=== PATIENT | female | born 1950 | race Caucasian/White ===

== ENCOUNTER 2020-12-23 08:31 | Emergency (ER) | payer OTHER, SELFPAY ==
--- NOTE | ~2020-12-23 | XR_ITS ---
EXAMINATION: XR lumbar spine 2-3V DATE: 12/23/2020 09:18 INDICATION: Low back pain TECHNIQUE: Anteroposterior and lateral views of the lumbar spine, and cone-down lateral view of the l umbosacral junction were obtained. COMPARISON: None. FINDINGS: Bone alignment is normal. There is no fracture. The vertebral body heights are maintained. There is severe loss of intervertebral disc space height at L5-S1 and moderate loss of disc space hei ght at L4-5. Small degenerative osteophytes project from the anterior endplates of multiple vertebral bodies. There is severe facet osteoarthritis of the lower lumbar spine. Calcified atherosclerosis is noted. IMPRESSION: 1. Moderate lumbar spondylosis without acute findings. Reviewed, dictated and finalized at location A.
--- NOTE | ~2020-12-23 | US_ITS ---
EXAMINATION: US venous doppler [facility] EXAM DATE: 12/23/2020 09:35 INDICATION: Left lower extremity pain. TECHNIQUE: Multiple grayscale, color flow and Doppler images of the left lower extremity deep venous system were obtained and reviewed. There is no prior study for comparison. FINDINGS: The left common femoral, femoral and profunda veins demonstrate normal color flow, respirat ory variation, augmentation and compressibility. Compressibility, color flow confirmed within the le ft popliteal, posterior tibial, peroneal, and greater saphenous veins. IMPRESSION: 1. No left lower extremity deep venous thrombosis. Reviewed, dictated and finalized at location [facility].
[2020-12-23 08:36] VITALS: BP 207/93; PULSE 73; RESP 19; TEMP 37; O2SAT 99
[2020-12-23] MEDS: KETOROLAC 30 MG/ML VIAL (*BKC) IM (09:39)
--- NOTE | 2020-12-23 10:25 | ED.GENADULT ---
HPI - General Adult General Chief complaint: Extremity Problem,Nontraumatic Stated complaint: left leg pain Time Seen by Provider: 12/23/20 08:39 History of Present Illness HPI narrative: Patient is a 70-year-old female who presents ER with left lower extremity pain. Ongoing over the last 2 days. Has been taking Tylenol without relief. Feels it radiate from her foot up to her low back on left side. No known injury or trauma but does report that she was carrying a laundry basket days ago. No weakness or numbness. No inability to urinate/defecate. Denies chest pain or shortness of breath. She has no new edema in her legs which she is concerned she has a blood clot. No previous history of blood clots. Occasionally feels burning in the leg. Related Data Home Medications Medication Instructions Recorded Confirmed aspirin 81 mg tablet,delayed 81 mg PO DAILY 04/29/20 08/15/20 release furosemide 20 mg tablet 20 mg PO QAM 04/29/20 08/15/20 metformin 1,000 mg tablet 1,000 mg PO BID 04/29/20 08/15/20 rosuvastatin 20 mg tablet 20 mg PO DAILY 04/29/20 08/15/20 Allergies Allergy/AdvReac Type Severity Reaction Status Date / Time amoxicillin Allergy Intermediate Swelling Verified 12/23/20 08:44 cephalexin [From Keflex] Allergy Intermediate Swelling Verified 12/23/20 08:44 hydrochlorothiazide Allergy Intermediate gout Verified 12/23/20 08:44 latex Allergy Intermediate Hives Verified 12/23/20 08:44 lisinopril Allergy Intermediate Cough Verified 12/23/20 08:44 Opioids - Morphine Analogues Allergy Intermediate Brachycardi Verified 12/23/20 08:44 a Tetanus Vaccines and Toxoid Allergy Intermediate Swelling Verified 12/23/20 08:44 losartan AdvReac Intermediate Fainting Verified 12/23/20 09:12 pioglitazone [From Actos] AdvReac Intermediate edema Verified 12/23/20 08:44 Review of Systems Review of Systems: All systems reviewed & are unremarkable except as noted in HPI and below Constitutional: Constitutional: Denies chills, Denies fever(s) and Denies weakness Cardiovascular: Cardiovascular: Denies chest pain and Denies radiating jaw, neck or arm pain Respiratory: Respiratory: Denies cough, Denies dyspnea and Denies wheezing Musculoskeletal: Musculoskeletal: Reports back pain, Denies arthralgias, Denies joint swelling and Denies muscle cramps Neurologic: Denies focal weakness and Denies numbness PMFSH Past Medical History Medical History Allergies Anxiety Arthritis CAD (coronary artery disease) Crohn disease Diabetes Fibromyalgia Heart disease Hypertension IBS (irritable bowel syndrome) Lupus Morbid obesity Panic disorder Seasonal allergic rhinitis Seizure Sjogrens syndrome Stroke Type 2 diabetes mellitus Family History Family History Father Diabetes mellitus Hypertension Depression Anxiety Heart disease Mother Hypertension Heart disease Sibling Diabetes mellitus Hypertension Depression Anxiety Heart disease Other Cerebrovascular accident Thyroid disease Type 2 diabetes mellitus Social History Social History Alcohol intake: never Substance use: never Gender identity (if verbalized by the patient): Female Sexual Orientation (if Verbalized by the Patient): Straight or Heterosexual Exam Narrative: GENERAL: Well-appearing, well-nourished, and in no acute distress. HEAD: Normocephalic, atraumatic. CHEST: Clear to auscultation. No respiratory distress. HEART: Regular rate and rhythm. Normal peripheral pulses. ABDOMEN: Soft, nontender, nondistended. Back: No midline tenderness of thoracic or lumbar spine. Mild tenderness in the left SI region. No bruising or abrasions noted. EXTREMITIES: Normal range of motion. No edema. Negative straight leg raise. SKIN: Warm, dry, no rash. NEURO: Sensation intact in lower extremitie
[2020-12-23 10:45] VITALS: BP 167/83; PULSE 76; RESP 18; O2SAT 95
== END 2020-12-23 10:47 | disposition home or self-care (01) ==
PROVIDERS: Emergency Provider Emergency Medicine; PCP Internal Medicine
DX: M54.32 Sciatica, left side (principal); I25.10 Atherosclerotic heart disease of native coronary artery without angina pectoris; K50.90 Crohn's disease, unspecified, without complications; E11.9 Type 2 diabetes mellitus without complications; I11.9 Hypertensive heart disease without heart failure; M35.00 Sjogren syndrome, unspecified; M79.7 Fibromyalgia; M19.90 Unspecified osteoarthritis, unspecified site; E66.01 Morbid (severe) obesity due to excess calories; Z68.41 Body mass index [BMI] 40.0-44.9, adult; F41.9 Anxiety disorder, unspecified; Z86.73 Personal history of transient ischemic attack (TIA), and cerebral infarction without residual deficits; Z79.82 Long term (current) use of aspirin; Z79.84 Long term (current) use of oral hypoglycemic drugs; M47.816 Spondylosis without myelopathy or radiculopathy, lumbar region
CPT/HCPCS: 72100; 93971; 96372; 99284; J1885

== ENCOUNTER 2021-05-15 14:42 | Emergency (ER) | payer OTHER, SELFPAY ==
[2021-05-15 14:42] VITALS: BP 204/52; PULSE 72; RESP 16; TEMP 36.2; O2SAT 96
[2021-05-15 14:49] VITALS: PULSE 72; RESP 12; O2SAT 98
--- NOTE | 2021-05-15 14:49 | ECG_ITS ---
Measurements Intervals Hood Rate: 71 P: 62 TX: 182 QRS: -19 QRSD: 99 T: 13 QT: 381 QTc: 414 Interpretive Statements SINUS RHYTHM MINIMAL VOLTAGE CRITERIA FOR LVH, CONSIDER NORMAL VARIANT [MEETS CRITERIA IN ONE OF: R(aVL), S(V1), R(V5), R(V5/V6)+S(V1)] NO PREVIOUS ECG AVAILABLE FOR COMPARISON Electronically Signed On 05-15-2021 18:47:20 CDT by Michelle Mtz M.D.
[2021-05-15 15:00] VITALS: PULSE 72; RESP 17; O2SAT 96
[2021-05-15 15:02] VITALS: BP 160/73; PULSE 73; RESP 11; O2SAT 98
--- NOTE | 2021-05-15 15:15 | ED.GENADULT ---
HPI - General Adult General Chief complaint: Seizure Stated complaint: SZ Time Seen by Provider: 05/15/21 14:45 Source: patient Mode of arrival: ambulatory Limitations: no limitations History of Present Illness HPI narrative: 70 years old white female presented to the ED with 2 episodes of pseudoseizure while being examined at Dr. WAYNE bae. Patient drove herself to the emergency room, currently is asymptomatic. Patient is telling me that she does not need any blood work-up or further evaluation because she had this kind of seizure when she is stressed. Patient missed direction to Dr. Hou office this morning, and was extremely mad and angry distressed about it. Patient does not know how to use GPS. Patient denies any focal deficit, fever, chills, nausea, vomiting, chest pain, shortness of breath, back pain, headache. History of diabetes, Sjogren's syndrome, IBS, fibromyalgia, anxiety, depression, systemic lupus Related Data Home Medications Medication Instructions Recorded Confirmed aspirin 81 mg tablet,delayed 81 mg PO DAILY 04/29/20 08/15/20 release Allergies Allergy/AdvReac Type Severity Reaction Status Date / Time amoxicillin Allergy Intermediate Swelling Verified 05/15/21 14:46 cephalexin [From Keflex] Allergy Intermediate Swelling Verified 05/15/21 14:46 hydrochlorothiazide Allergy Intermediate gout Verified 05/15/21 14:46 latex Allergy Intermediate Hives Verified 05/15/21 14:46 lisinopril Allergy Intermediate Cough Verified 05/15/21 14:46 Opioids - Morphine Analogues Allergy Intermediate Brachycardi Verified 05/15/21 14:46 a Tetanus Vaccines and Toxoid Allergy Intermediate Swelling Verified 05/15/21 14:46 losartan AdvReac Intermediate Fainting Verified 05/15/21 14:46 pioglitazone [From Actos] AdvReac Intermediate edema Verified 05/15/21 14:46 Review of Systems Review of Systems: CONSTITUTIONAL: Denies fever, chills, or sweats. EYES: Denies visual changes, redness, or discharge. ENT: Denies rhinorrhea, congestion, sore throat, or otalgia. CARDIOVASCULAR: Denies chest pain, palpitations, or edema. RESPIRATORY: Denies cough or dyspnea. GASTROINTESTINAL: Denies abdominal pain, nausea, vomiting, or diarrhea. GENITOURINARY: Denies dysuria or hematuria. SKIN: Denies rash or itching. MUSCULOSKELETAL: Denies back pain, joint pain, or myalgia. NEUROLOGIC: Denies headache, numbness, or weakness. PSYCHIATRIC: Denies anxiety or depression. [facility] Past Medical History Medical History Allergies Anxiety Arthritis CAD (coronary artery disease) Crohn disease Diabetes Fibromyalgia Heart disease Hypertension IBS (irritable bowel syndrome) Lupus Morbid obesity Panic disorder Seasonal allergic rhinitis Seizure Sjogrens syndrome Stroke Type 2 diabetes mellitus Family History Family History Father Diabetes mellitus Hypertension Depression Anxiety Heart disease Mother Hypertension Heart disease Sibling Diabetes mellitus Hypertension Depression Anxiety Heart disease Other Cerebrovascular accident Thyroid disease Type 2 diabetes mellitus Social History Social History Alcohol intake: never Substance use: never Gender identity (if verbalized by the patient): Female Sexual Orientation (if Verbalized by the Patient): Straight or Heterosexual Exam Narrative: General appearance: Well-developed, well-nourished Skin: Normal color Head: Normocephalic, nontraumatic Eyes: Clear conjunctiva ENT: Oropharynx normal, ears normal, nose normal Neck: Supple, nontender Chest and respiratory: Airway patent, no respiratory distress, no accessory muscle use Heart: Regular rate/rhythm Abdomen: Soft, nontender, no organomegaly, quiet bowel sounds Vascular: Normal peripheral pulses, normal capillary refill. Musculoskeletal: Normal range of nataliya
== END 2021-05-15 15:55 | disposition home or self-care (01) ==
LOC: ANHED 15:47
PROVIDERS: Emergency Provider Emergency Medicine; PCP Internal Medicine
DX: R56.9 Unspecified convulsions (principal); I25.10 Atherosclerotic heart disease of native coronary artery without angina pectoris; E11.9 Type 2 diabetes mellitus without complications; I10 Essential (primary) hypertension; K50.90 Crohn's disease, unspecified, without complications; M19.90 Unspecified osteoarthritis, unspecified site; M79.7 Fibromyalgia; M35.00 Sjogren syndrome, unspecified; F41.9 Anxiety disorder, unspecified; Z86.73 Personal history of transient ischemic attack (TIA), and cerebral infarction without residual deficits; E66.01 Morbid (severe) obesity due to excess calories; Z68.41 Body mass index [BMI] 40.0-44.9, adult; Z79.82 Long term (current) use of aspirin; Z79.84 Long term (current) use of oral hypoglycemic drugs; R94.31 Abnormal electrocardiogram [ECG] [EKG]
CPT/HCPCS: 93005; 99284

== ENCOUNTER 2021-06-30 08:41 | Outpatient (CLI) | payer OTHER, SELFPAY ==
--- NOTE | 2021-06-30 08:49 | ECHO_ITS ---
Patient Info Name: Dayanara Rasmussen Age: 70 years : 1950 Gender: Female Ht: 60 in Wt: 214 lbs BSA: 2.08 m2 HR: 71 bpm BP: 160 / 87 mmHg Technical Quality: Fair Exam Date: 06/30/2021 9:16 AM Exam Location: [facility] Patient Status: Outpatient Admit Date: 06/30/2021 Staff Ordering Physician: Lucio Hou DO Wastewater Treatment Operator: Antonio Brower RDCS, RT Attending Provider: Lucio Hou DO Referring Physician: Ameya HAYNES; Exam Type: CA echo doppler color flow Study Info Indications R01.1 - Cardiac murmur, unspecified Complete two-dimensional, color flow and Doppler transthoracic echocardiogram is performed. Strain analysis performed. Summary 1. Complete two-dimensional, color flow and Doppler transthoracic echocardiogram is performed. 2. Left ventricular chamber dimension is normal. 3. Left ventricular systolic function is normal, estimated at 60-65%. 4. There is mildly increased left ventricular wall thickness. 5. The left ventricular diastolic function is grade I diastolic dysfunction. 6. E/e' 14 is mildly elevated. 7. Global longitudinal strain is abnormal at -15.9%. 8. There is moderate aortic valve sclerosis. 9. There is moderate to severe aortic valve stenosis with a peak velocity of 306 cm/s, mean gradient of 21 mmHg, and aortic valve area of 0.9 cm2. 10. The mitral valve has mildly calcified annulus. 11. There is mild mitral valve regurgitation. 12. No pulmonary hypertension, estimated pulmonary arterial systolic pressure is 34 mmHg. Left Ventricle E/e' 14 is mildly elevated. Global longitudinal strain is abnormal at -15.9%. Left ventricular chamber dimension is normal. Left ventricular systolic function is normal, estimated at 60-65%. There is mildly increased left ventricular wall thickness. The left ventricular diastolic function is grade I diastolic dysfunction. Right Ventricle Right ventricular chamber dimension is normal. Right ventricular systolic function is normal. Left Atria Left atrial chamber dimension is normal. Right Atria Right atrial chamber dimension is normal. Aortic Valve There is moderate to severe aortic valve stenosis with a peak velocity of 306 cm/s, mean gradient of 21 mmHg, and aortic valve area of 0.9 cm2. The aortic valve is trileaflet. There is moderate aortic valve sclerosis. There is no aortic valve regurgitation. Pulmonic Valve There is no pulmonic regurgitation. Mitral Valve The mitral valve has mildly calcified annulus. There is no mitral valve stenosis. There is mild mitral valve regurgitation. Tricuspid Valve There is no tricuspid valve regurgitation. No pulmonary hypertension, estimated pulmonary arterial systolic pressure is 34 mmHg. Pericardium/Pleural There is no pericardial effusion. Inferior Vena Cava Normal inferior vena cava with >50% collapse upon inspiration consistent with normal right atrial pressure, 5 mmHg. Aorta The aortic root size at the sinus of Valsalva is normal. Left Ventricular Outflow Tract Name Value Normal LVOT 2D LVOT Diameter 1.9 cm LVOT Doppler LVOT Peak Gradient 4 mmHg
== END 2021-06-30 08:42 | disposition home or self-care (01) ==
PROVIDERS: PCP Family Medicine; Visit Provider Internal Medicine Cardiovascular Disease
DX: R01.1 Cardiac murmur, unspecified (principal)
CPT/HCPCS: 93306

== ENCOUNTER → 2021-07-08 09:14 | Outpatient (CLI) | payer OTHER, SELFPAY ==
--- NOTE | ~2021-07-08 | CT_ITS ---
EXAMINATION: CT brain wo con DATE: 07/08/2021 09:39 INDICATION: Patient states she fell and struck head and lost consciousness and April 2021, with he adaches since then. TECHNIQUE: Computed tomography (CT) of the head was performed without intravenous contrast. The mA wa s adjusted according to patient size. Iterative reconstruction technique was employed. Exam dose: 59 9.57 mGy-cm total exam DLP. COMPARISON: None FINDINGS: Bilateral carotid siphon internal carotid artery calcifications. There is nonspecific dimin ished attenuation of the cerebral white matter, likely due to chronic small vessel ischemic changes. No intracranial mass lesion or hemorrhage or cerebrovascular accident, midline shift or mass effect e ffect is detected. There is moderate cerebral and cerebellar volume loss. No subdural or epidural hematoma is detected. The orbital contents are unremarkable. The mastoid air cells and included paranasal sinuses are normally developed and aerated. No fracture or bone destruction of the cranial vault. IMPRESSION: Cerebral atherosclerosis and chronic small vessel ischemic changes of the cerebral white matter No acute intracranial finding or skull fracture Reviewed, dictated and finalized at [facility]. Reviewed, dictated and finalized at location B.
== END ==
PROVIDERS: PCP Family Medicine; Visit Provider Family Medicine
DX: S06.9X9A Unspecified intracranial injury with loss of consciousness of unspecified duration, initial encounter (principal)
CPT/HCPCS: 70450

== ENCOUNTER 2021-07-27 08:09 | Emergency (ER) | payer OTHER, SELFPAY ==
--- NOTE | ~2021-07-27 | US_ITS ---
US venous doppler LE RT DATE: 07/27/2021 09:18 INDICATION: Right lower extremity pain for 5 days TECHNIQUE: Real-time and color flow imaging and Doppler analysis of the veins of the lower extremity COMPARISON: None FINDINGS: The right greater saphenous vein is patent. There is spontaneous and phasic flow and normal augmentation and color flow signal and normal compression of the deep veins of the right lower extre mity. IMPRESSION: No evidence of deep venous thrombosis of right leg Reviewed, dictated and finalized at [facility]. Reviewed, dictated and finalized at location A.
[2021-07-27 08:14] VITALS: BP 148/75; PULSE 72; RESP 20; TEMP 36.8; O2SAT 100
[2021-07-27 08:15] VITALS: BP 165/115; PULSE 84; RESP 22; TEMP 36.3; O2SAT 98
--- NOTE | 2021-07-27 08:24 | ED.EXTPRO ---
HPI - Extremity Problem General Chief complaint: Extremity Problem,Nontraumatic Stated complaint: left leg pain Time Seen by Provider: 07/27/21 08:17 History of Present Illness HPI Narrative: Patient states that for the past 5 days she has had severe pain in her right leg, she states initially was in her right hip but now it is the worst in her right lower leg, denies any numbness or weakness or tingling, denies any recent trauma or prolonged pressure on the extremity, states she has never had pain like this before, not having any back pain. No history of DVTs. Related Data Home Medications Medication Instructions Recorded Confirmed aspirin 81 mg tablet,delayed 81 mg PO DAILY 04/29/20 06/06/21 release (Adult Aspirin Regimen) omega 6-[id number]-zcc-fish oil 1,000 mg 1 cap PO DAILY 06/06/21 06/06/21 (120 mg-180 mg) capsule (Fish Oil) Allergies Allergy/AdvReac Type Severity Reaction Status Date / Time amoxicillin Allergy Intermediate Swelling Verified 07/01/21 15:55 cephalexin [From Keflex] Allergy Intermediate Swelling Verified 07/01/21 15:55 hydrochlorothiazide Allergy Intermediate gout Verified 07/01/21 15:55 latex Allergy Intermediate Hives Verified 07/01/21 15:55 lisinopril Allergy Intermediate Cough Verified 07/01/21 15:55 Opioids - Morphine Analogues Allergy Intermediate Brachycardi Verified 07/01/21 15:55 a Tetanus Vaccines and Toxoid Allergy Intermediate Swelling Verified 07/01/21 15:55 losartan AdvReac Intermediate Fainting Verified 07/01/21 15:55 pioglitazone [From Actos] AdvReac Intermediate edema Verified 07/01/21 15:55 Review of Systems Review of Systems: CONST: No fever. HEENT: No sore throat C/V: No chest pain RESP: No difficulty breathing GI: No nausea or vomiting : No dysuria. M/S: Right lower extremity pain SKIN: No rash. NEURO: No focal numbness or weakness PSYCH: No depression PMFSH Past Medical History Medical History Allergies Anxiety Arthritis CAD (coronary artery disease) Crohn disease Diabetes Fibromyalgia Heart disease Hypertension IBS (irritable bowel syndrome) Lupus Morbid obesity Panic disorder Seasonal allergic rhinitis Seizure Sjogrens syndrome Stroke Type 2 diabetes mellitus Family History Family History Father Diabetes mellitus Hypertension Depression Anxiety Heart disease Mother Hypertension Heart disease Sibling Diabetes mellitus Hypertension Depression Anxiety Heart disease Other Cerebrovascular accident Thyroid disease Type 2 diabetes mellitus Social History Social History Alcohol intake: never Substance use: never Gender identity (if verbalized by the patient): Female Sexual Orientation (if Verbalized by the Patient): Straight or Heterosexual Exam Narrative: EXAMINATION OF ORGAN SYSTEMS/BODY AREAS: Constitutional: Vital signs per nursing GENERAL: Sitting up uncomfortably in the bed HEAD: Normal with no signs of head trauma. EYES: EOMI, conjunctiva normal ENT: Hearing grossly intact LUNGS: Nonlabored breathing. HEART: [Regular rate and rhythm] ABD: Nondistended EXT: Normal range of motion, no obvious lower extremity swelling, pulses and perfusion intact bilateral lower extremities SKIN: [No rashes or lesions.] NEURO: [Alert and oriented x 3. No focal sensory or strength deficits.] Full strength with ankle and knee and hip flexion/extension PSYCH: Normal affect Course Vital Signs Vital signs: Vital Signs Temperature 98.2 F 07/27/21 08:14 Pulse Rate 72 07/27/21 08:14 Respiratory Rate 20 07/27/21 08:14 Blood Pressure 148/75 H 07/27/21 08:14 Pulse Oximetry 100 07/27/21 08:14 Temperature 97.3 F L 07/27/21 08:15 Pulse Rate 66 07/27/21 08:44 Respiratory Rate 16 07/27/21 08:44 Blood Pressure 145/63 H 07/27/21 08:44 Pulse Oximetry 98
[2021-07-27] MEDS: KETOROLAC 30 MG/ML VIAL (*BKC) IM (08:28)
[2021-07-27 08:44] VITALS: BP 145/63; PULSE 66; RESP 16; O2SAT 98
--- NOTE | 2021-07-27 08:58 | PC.NURSE ---
Pt to US via w/c
--- NOTE | 2021-07-27 09:13 | PC.NURSE ---
Pt returned from Doppler
[2021-07-27] MEDS: diphenhydrAMINE HCl CAP 25 MG CAPSULE PO (09:32)
[2021-07-27] MEDS: HALOPERIDOL LACTATE 5 MG/ML VIAL IM (09:32)
[2021-07-27 09:58] VITALS: BP 142/78; PULSE 78; RESP 18; O2SAT 98
== END 2021-07-27 09:58 | disposition home or self-care (01) ==
PROVIDERS: Emergency Provider Emergency Medicine; PCP Family Medicine
DX: M79.662 Pain in left lower leg (principal); I25.10 Atherosclerotic heart disease of native coronary artery without angina pectoris; E11.9 Type 2 diabetes mellitus without complications; I10 Essential (primary) hypertension
CPT/HCPCS: 93971; 96372; 99284; A9270; J1630; J1885

== ENCOUNTER 2022-08-31 09:41 | Outpatient (CLI) | payer OTHER, SELFPAY ==
[2022-08-31 19:42] LABS: Creatinine Urine 175.2 mg/dL
[2022-08-31 19:49] LABS: MALB Creatinine Ratio 20.2 mg/g (0-30); Microalbumin Urine Random 35.4 mg/L (0-16.7)
[2022-08-31 20:18] LABS: Alanine Aminotransferase 34 U/L (6-35); Albumin Level 4.5 g/dL (3.5-5.1); Alkaline Phosphatase 83 U/L (38-126); Anion Gap 7 mmol/L (8-16); Aspartate Amino Transferase 83 U/L (14-36); Bilirubin,Total 0.8 mg/dL (0.2-1.3); Blood Urea Nitrogen 11 mg/dL (7-17); Calcium 9.6 mg/dL (8.4-10.2); Carbon Dioxide 32 mmol/L (22-30); Chloride 94 mmol/L (98-107); Cholesterol 129 mg/dL (0-200); Estimated Glomerular Filt Rate > 60; Glucose 222 mg/dL (65-110); HDL Direct 35 mg/dL; Potassium 4.1 mmol/L (3.4-5.0); Sodium 133 mmol/L (137-145); Triglycerides 189 mg/dL (<150)
[2022-08-31 20:47] LABS: LDL Cholesterol Direct 52 mg/dL
[2022-08-31 20:59] LABS: Hemoglobin A1C 9.1 % (<5.7)
== END 2022-08-31 09:42 | disposition home or self-care (01) ==
PROVIDERS: PCP Nurse Practitioner Adult Health; Visit Provider Nurse Practitioner Adult Health
DX: E11.9 Type 2 diabetes mellitus without complications (principal); I10 Essential (primary) hypertension
CPT/HCPCS: 36415; 80048; 80061; 80076; 82043; 83036

== ENCOUNTER 2022-12-08 10:08 | Outpatient (CLI) | payer OTHER, SELFPAY ==
[2022-12-08 18:42] LABS: Alanine Aminotransferase 29 U/L (6-35); Albumin Level 4.2 g/dL (3.5-5.1); Alkaline Phosphatase 75 U/L (38-126); Anion Gap 8 mmol/L (8-16); Aspartate Amino Transferase 69 U/L (14-36); Bilirubin,Total 0.7 mg/dL (0.2-1.3); Blood Urea Nitrogen 12 mg/dL (7-17); Calcium 9.4 mg/dL (8.4-10.2); Carbon Dioxide 28 mmol/L (22-30); Chloride 98 mmol/L (98-107); Cholesterol 129 mg/dL (0-200); Estimated Glomerular Filt Rate > 60; Glucose 200 mg/dL (65-110); HDL Direct 39 mg/dL; Sodium 134 mmol/L (137-145); Triglycerides 164 mg/dL (<150)
[2022-12-08 18:48] LABS: LDL Cholesterol Direct 61 mg/dL
[2022-12-08 19:09] LABS: Creatinine Urine 123.3 mg/dL
[2022-12-08 19:13] LABS: MALB Creatinine Ratio 9.7 mg/g (0-30)
[2022-12-08 19:23] LABS: Hemoglobin A1C 7.7 % (<5.7)
== END 2022-12-08 10:09 | disposition home or self-care (01) ==
PROVIDERS: PCP Family Medicine; Visit Provider Nurse Practitioner Adult Health
DX: E11.9 Type 2 diabetes mellitus without complications (principal); E78.5 Hyperlipidemia, unspecified
CPT/HCPCS: 36415; 80048; 80061; 80076; 82043; 83036

== ENCOUNTER 2023-06-10 10:28 | Outpatient (CLI) | payer OTHER, SELFPAY ==
[2023-06-10 19:20] LABS: Alanine Aminotransferase 29 U/L (6-35); Albumin Level 4.2 g/dL (3.5-5.1); Alkaline Phosphatase 84 U/L (38-126); Anion Gap 7 mmol/L (4-12); Aspartate Amino Transferase 73 U/L (14-36); Bilirubin,Total 0.6 mg/dL (0.2-1.3); Blood Urea Nitrogen 8 mg/dL (7-17); Calcium 9.3 mg/dL (8.4-10.2); Carbon Dioxide 30 mmol/L (22-30); Chloride 99 mmol/L (98-107); Cholesterol 125 mg/dL (0-200); Estimated Glomerular Filt Rate > 60; Glucose 191 mg/dL (65-110); HDL Direct 35 mg/dL; Potassium 4.1 mmol/L (3.4-5.0); Sodium 136 mmol/L (137-145); Triglycerides 182 mg/dL (<150)
[2023-06-10 19:37] LABS: LDL Cholesterol Direct 63 mg/dL
[2023-06-10 21:19] LABS: Creatinine Urine 31.7 mg/dL
[2023-06-10 21:21] LABS: MALB Creatinine Ratio 20.2 mg/g (0-30); Microalbumin Urine Random 6.4 mg/L (0-16.7)
== END 2023-06-10 10:29 | disposition home or self-care (01) ==
LOC: ANHBWCLAB 10:30
PROVIDERS: PCP Nurse Practitioner Adult Health; Visit Provider Nurse Practitioner Adult Health
DX: E11.9 Type 2 diabetes mellitus without complications (principal)
CPT/HCPCS: 36415; 80053; 80061; 82043; 83036

== ENCOUNTER 2023-09-15 16:27 | Outpatient (CLI) | payer OTHER, SELFPAY ==
--- NOTE | ~2023-09-15 | XR_ITS ---
Right wrist Technique: PA and lateral views were obtained. Clinical History: Pain Findings: No acute fracture or dislocation is seen. Osseous alignment is anatomic. There are minimal degenerative changes at triscaphe joint and first CMC joint. Soft tissues are unremarkable. Impression: Minimal degenerative changes, as above. Reviewed, dictated and finalized at [facility]. Impression: Minimal degenerative changes, as above.
== END 2023-09-15 16:28 | disposition home or self-care (01) ==
PROVIDERS: PCP Nurse Practitioner Adult Health; Visit Provider Nurse Practitioner Adult Health
DX: M19.031 Primary osteoarthritis, right wrist (principal)
CPT/HCPCS: 73100

== ENCOUNTER 2023-10-11 10:19 | Outpatient (CLI) | payer OTHER, SELFPAY ==
[2023-10-11 20:27] LABS: Alanine Aminotransferase 30 U/L (6-35); Alkaline Phosphatase 82 U/L (38-126); Anion Gap 11 mmol/L (4-12); Aspartate Amino Transferase 63 U/L (14-36); Bilirubin,Total 0.6 mg/dL (0.2-1.3); Blood Urea Nitrogen 9 mg/dL (7-17); Calcium 9.2 mg/dL (8.4-10.2); Carbon Dioxide 27 mmol/L (22-30); Chloride 96 mmol/L (98-107); Cholesterol 126 mg/dL (0-200); Estimated Glomerular Filt Rate > 60; Glucose 219 mg/dL (65-110); HDL Direct 39 mg/dL; Potassium 3.8 mmol/L (3.4-5.0); Sodium 134 mmol/L (137-145); Triglycerides 176 mg/dL (<150)
[2023-10-11 20:37] LABS: LDL Cholesterol Direct 56 mg/dL
[2023-10-11 20:53] LABS: Creatinine Urine 63.4 mg/dL
[2023-10-11 20:54] LABS: Hemoglobin A1C 8.3 % (<5.7)
[2023-10-11 20:57] LABS: MALB Creatinine Ratio 14.2 mg/g (0-30)
== END 2023-10-11 10:20 | disposition home or self-care (01) ==
PROVIDERS: PCP Nurse Practitioner Adult Health; Visit Provider Nurse Practitioner Adult Health
DX: E11.9 Type 2 diabetes mellitus without complications (principal)
CPT/HCPCS: 36415; 80053; 80061; 82043; 82565; 83036

== ENCOUNTER 2023-12-14 09:09 | Outpatient (CLI) | payer OTHER, SELFPAY ==
[2023-12-14 19:17] LABS: Add Urine Microscopic? NO; Appearance Urine Clear (Clear); Bilirubin Urine Negative (Negative); Blood Urine Negative (Negative); Color Urine Yellow (Yellow); Glucose Urine UA Negative (Negative); Ketones Urine Negative (Negative); Leukocyte Esterase Ur Negative LEU/UL (Negative); Nitrate Urine Negative (Negative); Protein Urine Negative (Negative); Specific Grav Ur 1.009 (1.001-1.035); Urobilinogen Urine 0.2 mg/dL (<2.0); pH Urine 6.5 (5.0-9.0)
== END 2023-12-14 09:10 | disposition home or self-care (01) ==
LOC: ANHBWCLAB 09:10
PROVIDERS: PCP Nurse Practitioner Adult Health; Visit Provider Nurse Practitioner Adult Health
DX: R32 Unspecified urinary incontinence (principal)
CPT/HCPCS: 81003; 87086

== ENCOUNTER 2024-02-15 10:11 | Outpatient (CLI) | payer OTHER, SELFPAY ==
[2024-02-15 19:47] LABS: Basophils Absolute Auto 0.1 K/mm3 (0.0-0.1); Basophils Percent Auto 0.7 % (0.2-1.2); Eosinophils Absolute Auto 0.2 K/mm3 (0-0.3); Eosinophils Percent Auto 3.3 % (0-4.4); Hematocrit 45.8 % (37.0-47.0); Hemoglobin 14.6 g/dL (12.0-15.0); Immature Granulocyte Absolute 0.01 K/mm3 (0.00-0.031); Immature Granulocyte Percent A 0.1 % (0-0.5); Lymphocytes Absolute Auto 2.29 K/mm3 (0.9-3.2); Lymphocytes Percent Auto 32.4 % (18.3-44.2); Mean Corpuscular HGB Conc 31.9 g/dl (32-36); Mean Corpuscular Hemoglobin 30.5 pg (26-34); Mean Corpuscular Volume 95.6 fl (80-100); Mean Platelet Volume 11.3 fl (7.4-10.4); Monocytes Absolute Auto 0.6 K/mm3 (0.1-0.6); Monocytes Percent Auto 8.2 % (2.6-8.5); Neutrophils Absolute Auto 3.9 K/mm3 (1.3-6.7); Neutrophils Percent Auto 55.3 % (45.5-73.1); Platelet Count Result 190 k/mm3 (150-375); Red Blood Count 4.79 M/mm3 (4.2-5.4); Red Cell Distribution Width 13.2 % (11.5-14.5); White Blood Count 7.1 K/mm3 (4.5-10.0)
[2024-02-15 19:59] LABS: Alanine Aminotransferase 31 U/L (6-35); Albumin Level 4.4 g/dL (3.5-5.1); Alkaline Phosphatase 91 U/L (38-126); Anion Gap 5 mmol/L (4-12); Aspartate Amino Transferase 104 U/L (14-36); Bilirubin,Total 0.7 mg/dL (0.2-1.3); Blood Urea Nitrogen 10 mg/dL (7-17); Calcium 9.5 mg/dL (8.4-10.2); Carbon Dioxide 31 mmol/L (22-30); Chloride 99 mmol/L (98-107); Cholesterol 135 mg/dL (0-200); Estimated Glomerular Filt Rate > 60; Glucose 195 mg/dL (65-110); HDL Direct 38 mg/dL; Magnesium 2.1 mg/dL (1.6-2.3); Potassium 4.3 mmol/L (3.4-5.0); Sodium 135 mmol/L (137-145); Triglycerides 186 mg/dL (<150)
[2024-02-15 20:10] LABS: LDL Cholesterol Direct 51 mg/dL
[2024-02-15 20:27] LABS: Microalbumin Urine Random 8.3 mg/L (0-16.7)
[2024-02-15 20:54] LABS: Creatinine Urine 48.8 mg/dL
[2024-02-15 21:03] LABS: Hemoglobin A1C 7.7 % (<5.7)
== END 2024-02-15 10:12 | disposition home or self-care (01) ==
LOC: ANHBWCLAB 10:12
PROVIDERS: PCP Nurse Practitioner Adult Health; Visit Provider Nurse Practitioner Adult Health
DX: I10 Essential (primary) hypertension (principal); E11.9 Type 2 diabetes mellitus without complications
CPT/HCPCS: 36415; 80053; 80061; 82043; 82565; 83036; 83735; 85025

== ENCOUNTER 2024-06-19 09:37 | Outpatient (CLI) | payer OTHER, SELFPAY ==
--- OUTSIDE RECORDS SUMMARY | 2024-06-19 10:40 | XMS_ITS | Continuity of Care Document ---
Author Organization [facility] [place] [address] [facility] [address] [place] [address] Phone Care Team Providers Care Pipeline Controller Name Role Phone Fortino VASQUEZ, Alissa Unavailable Unavailable Allergies, Adverse Reactions, Alerts Substance Reaction Status Criticality amoxicillin Active No Information latex Active No Information tetanus and diphtheria toxoids Active No Information hydrochlorothiazide Active No Infor mation lisinopril Active No Information losartan Active No Information CEPHALEXIN MONOHYDRATE Active No In formation morphine Active No Information Medications Medication Instructions Dosage Effective Dates (start - stop) Status Comments Ying Grant U-100 Insulin 100 unit/mL (3 mL) subcutaneous pen inject by subcutaneous route as per insulin protocol 0.00 - Active metformin 1,000 mg tablet take 1 tablet by oral route 2 times every day with morning and evening meals 1000 MG - Active glipizide 10 mg tablet take 1 tablet by oral route every day before a meal 10 MG - Active atenolol 50 mg tablet take 1 tablet by o ral route every day 50 MG - Active furosemide 20 mg tablet take 1 tablet by oral route every day 20 MG - Active gabapentin 600 mg tablet take 1 tablet by oral route 3 times every day 600 MG - Active rosuvastatin 20 mg tablet take 1 tablet by oral route every day 20 MG - Active dicyclomine 10 mg capsule take 1 capsule by oral route 3 times every day 10 MG - Active alprazolam 0.5 mg tablet take 1 tablet by oral route 3 times every day 0.5 MG - Active aspirin 81 mg tablet,delayed release take 1 tablet by oral route every day 81 MG - Active multivitamin tablet take 1 tablet by ora l route every day 1 tablet - Active Procedures Procedure Date SCODI, Retina Fundus Photography W/ Report Eye Exam & Treatment No Charge [facility]om[facility] Fundus Photos 024 No Charge Refraction SCODI, Retina No Charge [facility] Fundus Photos 023 Office/outpatient Visit, Est No Charge [facility] Fundus Photos 023 SCODI, Retina No Charge Refraction Eye Exam & Treatment SCODI, Retina No Charge [facility] Fundus Photos 022 Refraction Eye Exam & Treatment No Charge Optom[facility] Fundus Photos 021 No Charge Refraction SCODI, Retina Eye Exam, New Patient Advance Directives Directive Yes / No Effective Date File Name Other Directive No N/A N/A WARNING:The information contained in this section is historical and is provided for information only and does not constitute a legal document or any assurance that the information is still accurate. Please verify the information with the martinez of the legal document before using it for clinical purposes. Encounters Encounter Description Practice Location Reason(s) For Visit Diagnoses Date Provider Providers Copied on Encounter [facility], [address] [place] [address] [facility] [address], [place], [place], [address], tel:[phone] DARLEEN PERALTA Professional Follow up visit (chief complaint) Type 2 diab with moderate nonp rtnop with macular edema, biVitreous degeneration, bilateralStabl e branch retinal vein occlusion of right eyeDry eye syndrome of left lacrimal glandPresence of intraocular lensOther secondary cataract, bilateral 4 Fortino OD Alissa. [address] [place] [address] [employer], [address], [place], [place], [address], [place]. tel:[phone] Antonio Mohamud DO.Referri Provider: Luis Beck, [address], [place], [address] . tel:[phone] Office/outpa tient Visit, [facility], [facility] [address], [place], [place], [address], tel:[phone] SEC Jhonny PERALTA Professional 3 Mo NPDR FU (chief complaint) Type 1 diab with moderate nonp rtnop with macular edema, biVitreous degeneration, bilateralStabl e branch retinal vein occlusion of right eyeMeibomian gland dysfnct left eye, upper and lower eyelidsMeibomi an gland dysfnct right eye, upper and lower eyelids Oct-2 3 Fortino OD Alissa. [facility] [employer], [address], [place], [place], [address], [place]. tel:[phone] Antonio Mohamud DO.Referri ng Provider: Luis Beck, [facility] [employer] [address], [place], [address] . tel:[phone] [facility], [facility] [address], [place], [place], [address], [place] tel:[phone] SEC Jhonny PERALTA Professional Diabetic eye exam (chief complaint) Presence of intraocular lensHistory of occlusion of branch retinal arteryStable branch retinal vein occlusion of right eyeVitreous degeneration, bilateralType 2 diab with mod nonp rtnop without macular edema, l eyeType 2 diab with mod nonp rtnop with macular edema, r eyeMeibomian gland dysfnct left eye, upper and lower eyelidsMeibomi an gland dysfnct right eye, upper and lower eyelids Aug- 3 Fortino OD Alissa. [facility] [employer], [address], [place], [place], [address], [place]. tel:[phone] Specialist : Antonio Mohamud DO, [address] [place] [address], [place], [address]. tel:[phone] erring Provider: Luis Beck, [address], [place], [address] . tel:[phone] [facility], [address], [place], [place], [address], [phone] SEC Underwood FABIAN Professional Diabetic eye exam (chief complaint) Type 2 diabetes mellitus without complicationsP resence of intraocular lensPinguecula , right eyeDot and blot hemorrhage, right 0 2 Bryan Luu. [address] [facility], [address], [place], [place], [address], [place]. tel:[phone] Referring Provider: Luis Beck, [facility] [address], [place], [address] . tel:[phone] [facility], [address], [place], [place], [address], [phone] SEC Jhonny FABIAN Professional Diabetic eye exam (chief complaint) Presence of intraocular lensPinguecula , right eyeDry eye syndrome of left lacrimal glandAmblyopia of right eyeType 2 diabetes mellitus without complicationsB ranch retinal vein occlusion of right eye with retinal neovasculariza tion 1 Bryan Luu. [address] [facility], [address], [place], [place], [address], [place]. tel:[phone] Referring Provider: Luis Beck, [facility] [address], [place], [address] . tel:[phone] [facility], [address], [place], [place], [address], [place] [phone] SEC Jhonny PERALTA Professional No Information 1 Kranthi Smith. [address], [address], [place], [place], [address], [place]. tel:[phone] Family History Family Member Type Diagnosis Age At Onset Problem Family history of Diabetes garrett souza Payers Payer name Insurance type Covered constitution party ID Authoriza tion(s) [employer] [id number] Social History Type Description Quantity Date Captured Comments Alcohol Use Details No Caffeine Use Details Tobacco Use Status Current non-smoker Smoking Status Never smoker Non-Smoking Tobacco Use Details : No Details Available : No Details Available Sex Female Chief Complaint And Reason For Visit From encounter dated '09/08/2023 14:30'. Follow up visit (chief complaint). Description: The 73 year old patient presents for evaluation of 6-8 month NPDR/CME Follow up visit in the right eye and left eye. Pt is DMII and followed by PCP, last A1C was around 8. Pts last BS reading was done this AM but she is unsure what it was. Pt states it fluctuates between 96-195 depending on the day. Pt is Insulin dependent. Pt states she has not noti jason any difference in vision since last visit. Reason For Referral Reason For Referral No Information Plan Of Treatment Date Type Action Status Patient Education Learning About YAG Lase r Capsulotomy completed Patient Education Diabetic Retinopathy: C are Instructions completed Patient Education Learning About Vitreous Detachment completed Patient Education Type 2 Diabetes: Care I nstructions completed Patient Education Learning About Retinal Vein Occlusion completed History Of Present Illness Encounter Date Complaint History Of Prese nt Illness Follow up visit The 73 year old patient presents for evaluation of 6-8 month NPDR/CME Follow up visit in the right eye and left eye. Pt is DMII and followed by PCP, last A1C was around 8. Pts last BS reading was done this AM but she is unsure what it was. Pt states it fluctuates between 96-195 depending on the day. Pt is Insulin dependent. Pt states she has not noticed any difference in vision since last visit. 3 Mo NPDR FU The 72 year old patient presents for evaluation of 3 Mo NPDR FU in the right eye and left eye. Recent A1C 7.7, BS runs 125-175. Still on insulin. Pt states no pain or discomfort in OU, pt also states no changes in vision since last visit. Diabetic eye exam The 72 year ol d patient presents for evaluation of Diabetic eye exam in the right eye and left eye. Patient states she sees a spot in her left eye vision. Patient states VA has decreased at a distance. Patient also has a couple of bumps on her lids that she wants the doctor to look at. Patient is a diab, BS checked this am @ 202, a1c 9.0, and PCP treats her diab. Diabetic eye exam The 71 year ol d patient presents for evaluation of Diabetic eye exam in the right eye and left eye. Hx of Amblyopia OD, BRVO OD, DBS'S OD, and PCIOL OU. Patient states she was put on Insulin 4 months ago which seem to help her VA. Patient checked BS this am @ 145, a1c 10, and PCP treats her BS. Diabetic eye exam The 69 year ol d female presents for evaluation of Diabetic eye exam in the right eye and left eye. Hx of Cataract sx OU. Patient states she is having blurred VA in both eyes. Patient avoids driving at night and won't drive when it rains. Patient states her BS has been running extremely high over the last couple of months. Patient states she is very stressed. Patient is a Type 2 diab she doesn't know how long, BS last checked couple weeks ago @ 250, a1c 12.0, and PCP treats her diab as of now but she is going to be seeing an endo next week. Functional Status Date Functional Assessmen t No Information Instructions Date Instruction Additional Infor patrica Impression/Plan Impression/Plan Impression/Plan Impression/Plan Impression/Plan Assessments Type Assessment Date assessment Type 2 diab with moderate nonp r tnop with macular edema, bi assessment Vitreous degeneration, bilateral assessment Stable branch retinal vein occlu leatha of right eye assessment Dry eye syndrome of left lacrima l gland assessment Presence of intraocular lens Aug assessment Other secondary cataract, bilate ral Patient Care Teams Name Effective Dates (start - stop) Status Members No Information
--- OUTSIDE RECORDS SUMMARY | 2024-06-19 10:40 | XMS_ITS | Clinical Summary ---
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 [facility] Comment: Interpretive Data No reference range established. Current interpretive data was last revised 2018. Creatinine Ur 11.6 mg/dL [facility] Comment: Interpretive Data No reference range established. Current interpretive data was last revised 2018. Albumin Creatinine Ratio, Ur <103(H) 1 - 29 mg/g [facility] [place]] Urine 11/10/2021 10:5 4 AM CDT 11/10/2021 2:12 PM CDT us Brody Tran MD LAB URINE ORDERABLES Muriel montano Result [facility] [address] Department [place] [address] * (ABNORMAL) Lipid panel (11/10/2021 10:54 AM CDT) Cholesterol 126 30 - 199 mg/dL [facility] Comment: Interpretive Data Ages < or = 19 years Acceptable: <170 mg/dL Borderline high: 170-199 mg/dL High: >or= 200 mg/dL Ages > or = 20 years Desirable: <200 mg/dL Borderline high: 200-239 mg/dL High: >or= 240 mg/dL Literature References: 1. Expert Panel on Integrated Guidelines for Cardiovascular Health and Risk Reduction in Children and Adolescents. Pediatrics 2011;128:S213 2. NCEP Expert Panel. Circulation 2004;110:227 Current Interpretive Data was last revised on 2017. Triglycerides 199(H) <=149 mg/dL [facility] Comment: Interpretive Data Ages < or = 9 years Acceptable: <75 mg/dL Borderline high: 75-99 mg/dL High: >or= 100 mg/dL Ages 10 to 20 years Acceptable: <90 mg/dL Borderline high: 90-129 mg/dL High: >or= 130 mg/dL Ages > or = 20 years Desirable: <150 mg/dL Borderline high: 150-199 mg/dL High: 200-499 mg/dL Very high: >or= 499 mg/dL Literature References: 1. Expert Panel on Integrated Guidelines for Cardiovascular Health and Risk Reduction in Children and Adolescents. Pediatrics 2011;128:S213 2. NCEP Expert Panel. Circulation 2004;110:227 Current Interpretive Data was last revised on 2017. HDL 43 >=40 mg/dL [facility] Comment: Interpretive Data Ages < or = 19 years Acceptable: >45 mg/dL Borderline low: 40-45 mg/dL Low: <40 mg/dL Ages > or = 20 years Desirable: >or= 60 mg/dL Low: <40 mg/dL Literature References: 1. Expert Panel on Integrated Guidelines for Cardiovascular Health and Risk Reduction in Children and Adolescents. Pediatrics 2011;128:S213 2. NCEP Expert Panel. Circulation 2004;110:227 Current Interpretive Data was last revised on 2017. LDL, calculated 43 <=129 mg/dL [facility] Comment: Interpretive Data Ages < or = 19 years Acceptable: <110 mg/dL Borderline high: 110-129 mg/dL High: >or= 130 mg/dL Ages > or = 20 years Optimal: <100 mg/dL Near optimal: 100-129 mg/dL Borderline high: 130-159 mg/dL High: >160 mg/dL Literature References: 1. Expert Panel on Integrated Guidelines for Cardiovascular Health and Risk Reduction in Children and Adolescents. Pediatrics 2011;128:S213 2. NCEP Expert Panel. Circulation 2004;110:227 Current Interpretive Data was last revised on 2017. Non-HDL Cholesterol 83 mg/dL [facility] Comment: Interpretive Data Ages < or = 19 years Acceptable: <120 mg/dL Borderline high: 120-144 mg/dL High: >145 mg/dL Ages > or = 20 years When triglycerides are >200 mg/dL, Non-HDL cholesterol is a secondary target of therapy with treatment goals that are 30 mg/dL greater than the LDL cholesterol target. Literature References: 1. Expert Panel on Integrated Guidelines for Cardiovascular Health and Risk Reduction in Children and Adolescents. Pediatrics 2011;128:S213 2. NCEP Expert Panel. Circulation 2003;110:227 Current Interpretive Data was last revised on 2017. Chol/HDL ratio 3 [facility] Blood 11/10/2021 10:5 4 AM CDT 11/10/2021 2:12 PM CDT us Brody Tran MD LAB BLOOD ORDERABLES Muriel montano Result [facility] [address] Department of Laboratories [place], [place] [id number] * Diabetic Eye Exam (07/31/2021) Historical Provider [facility] Final Result * Stool DNA - Cologuard (03/20/2020 11:04 AM SUPERVISOR COLOR PASTE MIXING) Stool DNA - Cologuard Negative Not Applicable [employer] (CLIA #:[id number]) Comment: A negative result indicates a low likelihood that a colorectal cancer (CRC) or an advanced adenoma (adenomatous polyps with more advanced pre-malignant features) is present. The chance that a person with a negative Cologuard test has a colorectal cancer is less than 1 in 1500 (negative predictive value >99.9%) or has an advanced adenoma is less than 5.3% (negative predictive value 94.7%). These data are based on a prospective cross-sectional screening study of 10,000 individuals at average risk for colorectal cancer who were screened with both Cologuard and colonoscopy. (Jhonatanialjenn T. et al, N Engl J Med 2014;370(14):8283-7961) The normal value (reference range) for this assay is negative. COLOGUARD RE-SCREENING RECOMMENDATION: Periodic routine colorectal cancer screening is an important part of preventive healthcare for asymptomatic persons at average risk for colorectal cancer. Following a negative Cologuard result, the [employer] Society and U.S. Multi-Society Task Force screening guidelines recommend a Cologuard re-screening interval of 3 years. References: [employer] Society (ACS). Colorectal cancer prevention and early detection. [place], [place]: [employer] Society; [updated 2016 Jun 22]. https://www.cancer.org/cancer/davqo-cffgmf-vftdsj/igcvutaqv-orblcsjkn-ofoldrp/ac s-rec ommendations.html. Accessed October 29, 2017; Jeffrey DEL ROSARIO, Chris NIÑO, Timothy MOJ[place], Colorectal Cancer Screening: Recommendations for Physicians and Patients from the U.S. Multi-Society Task Force on Colorectal Cancer Screening, Am J Gastroenterology 2017; 112:6642-3382. TEST TYPE: Composite algorithmic analysis of stool DNA-biomarkers with hemoglobin immunoassay. Quantitative values of individual biomarkers are not reportable and are not associated with individual biomarker result reference ranges. PRECAUTIONS AND LIMITATIONS: Cologuard is intended for colorectal cancer screening of adults of either sex, 45 years or older, who are at average-risk for colorectal cancer (CRC). Cologuard has been approved for use by the U.S. FDA. Cologuard may produce a false negative or false positive result. A negative Cologuard test result does not guarantee the absence of CRC or advanced adenoma (pre-cancer). Patients with a negative Cologuard test result should be advised to continue participating in a colorectal cancer screening program. The screening interval for Cologuard is currently recommended at an interval of every 3 years by the [employer] Society and U.S. Multi-Society Task Force. A false positive result occurs when Cologuard produces a positive result, even though a colonoscopy may not find colorectal cancer or precancerous polyps. The performance of Cologuard has been established in a cross sectional study (i.e., single point in time) of average-risk adults aged 50-84. Cologuard performance in patients ages 45 to 49 years was estimated by sub-group analysis of near-age groups. Cologuard performance data in a 10,000 patient pivotal study using colonoscopy as the reference method can be accessed at the following location: www.[employer]/results. Additional description of the Cologuard test process, warnings and precautions can be found at www.cologuardtest.com. Rx only. Stool 03/20/2020 11:0 4 AM SUPERVISOR COLOR PASTE MIXING 03/21/2020 10:57 AM SUPERVISOR COLOR PASTE MIXING us Brody Tran MD LAB BODY FLUIDS AND STOOL S ORDERABLES Final Result [facility] (CLIA #:[id number]) [address] [place] [address] from Last 3 Months or Most Recently Relevant to Health Maintenance Insurance [employer] Care Teams Biometrics Technician Relationship Specialty Start Date End Date Lino Tomas MD PCP - General Family Practice 05/10/23
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
[2024-06-19 19:44] LABS: Alanine Aminotransferase 30 U/L (6-35); Albumin Level 4.3 g/dL (3.5-5.1); Alkaline Phosphatase 83 U/L (38-126); Anion Gap 8 mmol/L (4-12); Aspartate Amino Transferase 84 U/L (14-36); Bilirubin,Total 0.6 mg/dL (0.2-1.3); Blood Urea Nitrogen 12 mg/dL (7-17); Calcium 9.2 mg/dL (8.4-10.2); Carbon Dioxide 31 mmol/L (22-30); Chloride 98 mmol/L (98-107); Cholesterol 130 mg/dL (0-200); Estimated Glomerular Filt Rate > 60; Glucose 166 mg/dL (65-110); HDL Direct 38 mg/dL; Potassium 4.7 mmol/L (3.4-5.0); Sodium 137 mmol/L (137-145); Triglycerides 180 mg/dL (<150)
[2024-06-19 19:56] LABS: LDL Cholesterol Direct 48 mg/dL
[2024-06-19 20:50] LABS: Hemoglobin A1C 7.7 % (<5.7)
[2024-06-19 21:39] LABS: Creatinine Urine 49.7 mg/dL
[2024-06-19 21:45] LABS: MALB Creatinine Ratio 18.5 mg/g (0-30); Microalbumin Urine Random 9.2 mg/L (0-16.7)
== END 2024-06-19 09:38 | disposition home or self-care (01) ==
PROVIDERS: PCP Nurse Practitioner Adult Health; Visit Provider Nurse Practitioner Adult Health
DX: E11.9 Type 2 diabetes mellitus without complications (principal)
CPT/HCPCS: 36415; 80053; 80061; 82043; 82565; 83036

== ENCOUNTER 2024-08-21 11:51 | Outpatient (CLI) | payer OTHER, SELFPAY ==
--- NOTE | ~2024-08-21 | XR_ITS ---
EXAM/ PROCEDURE: XR knee LT min 4V - 08/21/2024 11:53 CDT HISTORY: 74 years old Female with M25.569 - Pain in unspecified knee COMPARISON: None available TECHNIQUE: Three view(s) FINDINGS/ IMPRESSION: There are no fractures or dislocations.Joint space narrowing, subchondral sclerosis, subchondral cyst formation and osteophyte formation, compatible with mild osteoarthritis. Atherosclerotic calcificati ons are seen. Reviewed, dictated and finalized at location A.
== END 2024-08-21 11:52 | disposition home or self-care (01) ==
PROVIDERS: PCP Nurse Practitioner Adult Health; Visit Provider Nurse Practitioner Adult Health
DX: M25.862 Other specified joint disorders, left knee (principal)
CPT/HCPCS: 73564

== ENCOUNTER 2024-08-21 14:15 | Outpatient (CLI) | payer OTHER, SELFPAY ==
--- NOTE | ~2024-08-21 | US_ITS ---
EXAMINATION: US venous doppler [facility] DATE: 08/21/2024 15:11 INDICATION: Pain and swelling TECHNIQUE: Grayscale ultrasound images without and with compression and Doppler ultrasound images of the left lower extremity veins were obtained. COMPARISON: 07/27/2021 FINDINGS: The visualized portions of left common femoral vein, profunda (deep) femoral vein, femoral vein, popl iteal vein, peroneal veins, posterior tibial veins, and greater saphenous vein outflow are patent. IMPRESSION: 1. No deep venous thrombosis. Reviewed, dictated and finalized at location A.
== END 2024-08-21 14:16 | disposition home or self-care (01) ==
PROVIDERS: PCP Nurse Practitioner Adult Health; Visit Provider Nurse Practitioner Adult Health
DX: M79.662 Pain in left lower leg (principal)
CPT/HCPCS: 73564; 93971

== ENCOUNTER 2024-12-21 09:58 | Outpatient (CLI) | payer OTHER, SELFPAY ==
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
[2024-12-21 18:52] LABS: Alanine Aminotransferase 24 U/L (6-35); Albumin Level 4.2 g/dL (3.5-5.1); Alkaline Phosphatase 79 U/L (38-126); Anion Gap 8 mmol/L (4-12); Aspartate Amino Transferase 116 U/L (14-36); Bilirubin,Total 0.6 mg/dL (0.2-1.3); Blood Urea Nitrogen 11 mg/dL (7-17); Calcium 9.3 mg/dL (8.4-10.2); Carbon Dioxide 29 mmol/L (22-30); Chloride 98 mmol/L (98-107); Cholesterol 117 mg/dL (0-200); Estimated Glomerular Filt Rate > 60; Glucose 142 mg/dL (65-110); HDL Direct 39 mg/dL; Potassium 4.6 mmol/L (3.4-5.0); Sodium 135 mmol/L (137-145); Total Protein 7.4 g/dL (6.3-8.2); Triglycerides 157 mg/dL (<150)
[2024-12-21 22:21] LABS: MALB Creatinine Ratio 15.7 mg/g (0-30)
[2024-12-21 23:55] LABS: Hemoglobin A1C 6.3 % (<5.7)
== END 2024-12-21 09:59 | disposition home or self-care (01) ==
LOC: ANHBWCLAB 10:00
PROVIDERS: PCP Nurse Practitioner Adult Health; Visit Provider Nurse Practitioner Adult Health
DX: E11.9 Type 2 diabetes mellitus without complications (principal)
CPT/HCPCS: 36415; 80053; 80061; 82043; 82565; 83036

== ENCOUNTER 2025-01-10 11:20 | Outpatient (CLI) | payer OTHER, SELFPAY ==
--- OUTSIDE RECORDS SUMMARY | 2024-12-27 03:27 | XMS_ITS | Continuity of Care Document ---
Author Organization [facility] Address [address] [place] [address] Phone Care Team Providers Care Stuffer Name Role Phone Kranthi HUNTER FACS, Luis Unavailable Unavailab le Allergies, Adverse Reactions, Alerts Substance Reaction Status Criticality amoxicillin Active No Information latex Active No Information tetanus and diphtheria toxoids Active No Information hydrochlorothiazide Active No Infor mation lisinopril Active No Information losartan Active No Information CEPHALEXIN MONOHYDRATE Active No In formation morphine Active No Information Medications Medication Instructions Dosage Effective Dates (start - stop) Status Comments Humalog Mix 75-25 (U-100) Insulin 100 unit/mL subcutaneous suspension inject by subcutaneous route per prescriber's instructions. Insulin dosing requires individualization. 0.00 - Active metformin 1,000 mg tablet [...] - Active Procedures Procedure Date SCODI, Retina No Charge Refraction No Charge Optomap Fundus Photos 025 Eye Exam & Treatment SCODI, Retina Eye Exam & Treatment No Charge Optomap [...] Yes / No Effective Date File Name No Information Encounters Encounter Description Practice Location Reason(s) For Visit Diagnoses Date Provider Providers Copied on Encounter [facility], [address] [place] [address] [address], [place], [place], [address], [place] tel:[phone] SEC Esbon SHELDON No Information Oct-[address], [address], [place], [place], [address], [place]. tel:[phone] [facility], [address] [facility] [address], [place], [place], [address], [place] tel:[phone] SEC Jhonny PERALTA Professional diabetic eye exam (chief complaint) Type 2 diab with moderate nonp rtnop with macular edema, biVitreous degeneration, bilateralStabl e branch retinal vein occlusion of right eyePresence of intraocular lensOther secondary cataract, bilateralDry eye syndrome of bilateral lacrimal glands Oct-2 5 Fortino OD Alissa. [facility] [employer], [address], [place], [place], [address], [place]. tel:[phone] Antonio Mohamud DO.Special ist: Maximiliano Guillen MD, [address], [address], [place], [address] . tel:[phone] erring Provider: Luis Beck, [facility] [employer] [address], [place], [address] . tel:[phone] [facility], [address] [place], [place] [address], [place], [place], [address], [place] tel:[phone] SEC Jhonny PERALTA Professional Follow up visit (chief complaint) Type 2 diab with moderate nonp rtnop with macular edema, biVitreous degeneration, bilateralStabl e branch retinal vein occlusion of right eyeDry eye syndrome of left lacrimal glandPresence of intraocular lensOther secondary cataract, bilateral Daniel- 0 4 Fortino OD Alissa. [facility] [employer], [address], [place], [place], [address], [place]. tel:[phone] Antonio Mohamud DO.Referri ng Provider: Luis Beck, [facility] [employer] [address], [place], [address] . tel:[phone] Office/outpa tient Visit, [facility], [facility] [address], [place], [place], [address], [place] tel:[phone] SEC Jhonny FABIAN Professional 3 Mo NPDR FU (chief complaint) Type 1 diab with moderate nonp rtnop with macular edema, biVitreous degeneration, bilateralStabl e branch retinal vein occlusion of right eyeMeibomian gland dysfnct left eye, upper and lower eyelidsMeibomi an gland dysfnct right eye, upper and lower eyelids Oct-2 7 3 Fortino OD Alissa. [facility] [employer], [address], [place], [place], [address], [place]. tel:[phone] Antonio Mohamud DO.Referri ng Provider: Luis Beck, [facility] [employer] [address], [place], [address] . tel:[phone] [facility], [facility] [address], [place], [place], [address], [place] tel:[phone] SEC [facility] Professional Diabetic eye exam (chief complaint) Presence [...] dysfnct right eye, upper and lower eyelids 3 Fortino OD Alissa. [facility] [place] [employer], [address], [place], [place], [address], [place]. tel:[phone] Specialist : Antonio Mohamud DO, [facility], [place], [address]. tel:[phone] erring Provider: Luis Beck, [facility] [employer] [address], [place], [address] . tel:[phone] [facility], [facility] [address], [place], [place], [address], [place] tel:[phone] SEC [facility] Professional Diabetic eye exam (chief complaint) Type 2 diabetes mellitus without complicationsP resence of intraocular lensPinguecula , right eyeDot and blot hemorrhage, right 2 Bryan Luu. [address] [facility] [address] [facility] [address], [address], [place], [place], [address], [place]. tel:[phone] Referring Provider: Luis Beck, [facility] [place] [employer] [address], [place], [address] . tel:[phone] [facility], [facility] [address], [place], [place], [address], [place] tel:[phone] SEC [place] FABIAN Professional Diabetic eye exam (chief complaint) Presence of intraocular lensPinguecula , right eyeDry eye syndrome of left lacrimal glandAmblyopia of right eyeType 2 diabetes mellitus without complicationsB ranch retinal vein occlusion of right eye with retinal neovasculariza tion 1 Adams Jus. [address] [facility], [address], [place], [place], [address], [place]. tel:[phone] Referring Provider: Luis Beck, [address], [place], [address] . tel:[phone] [facility], [address], [place], [place], [address], tel:[phone] SEC [place] FABIAN Professional No Information 1 Kranthi Smith. [address], [address], [place], [place], [address], . tel:[phone] Family History Family Member Type Diagnosis Age At Onset Problem Family history of Diabetes m harley Payers Payer name Insurance type Covered democrat ID Authorearla jerome(s) [employer] [id number] Social History Type Description Quantity Date Captured Comments Alcohol Use Details Unknown Caffeine Use Details Unknown Tobacco Use Status No Information Smoking Status No Information Sex Female Chief Complaint And Reason For Visit No Information Reason For Referral Reason For Referral No Information Plan Of Treatment Date Type Action Status Goal Tobacco cessation counseling completed Appointment Dayanara Rasmussen BOOKED Patient Education Learning About YAG Lase r Capsulotomy completed Patient Education Learning About YAG Lase r Capsulotomy completed Patient Education Diabetic Retinopathy: C are Instructions completed Patient Education Learning About Vitreous Detachment completed Patient Education Type 2 Diabetes: Care I nstructions completed Patient Education Learning About Retinal Vein Occlusion completed History Of Present Illness Encounter Date Complaint History Of Prese nt Illness diabetic eye exam The 74 year ol d patient presents for a complete Type II diabetic exam ou. 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 BS was 117 this am and last A1C 6.3. Patient sometimes she gets blur spots in her vision ou. Follow up visit The 73 year old [...] Infor patrica Impression/Plan Impression/Plan Impression/Plan Impression/Plan Impression/Plan Impression/Plan Assessments Type Assessment Date No Information Patient Care Teams Name Effective Dates (start - stop) Status Members No Information
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
[2025-01-10 19:11] LABS: Alanine Aminotransferase 25 U/L (6-35); Albumin Level 4.1 g/dL (3.5-5.1); Alkaline Phosphatase 71 U/L (38-126); Aspartate Amino Transferase 80 U/L (14-36); Bilirubin,Total 0.6 mg/dL (0.2-1.3); Total Protein 7.1 g/dL (6.3-8.2)
== END 2025-01-10 11:21 | disposition home or self-care (01) ==
LOC: ANHBWCLAB 11:21
PROVIDERS: PCP Nurse Practitioner Adult Health; Visit Provider Nurse Practitioner Adult Health
DX: R74.8 Abnormal levels of other serum enzymes (principal)
CPT/HCPCS: 36415; 80076